=== PATIENT | female | born 1960 | race American Indian/Alaskan Native ===

== ENCOUNTER 2017-01-08 14:36 | Emergency (ER) | payer MEDICARE ==
[2017-01-08 14:50] VITALS: TEMP 98.7
[2017-01-08 15:52] LABS: BASO # 0.1 K/uL (0.0-0.2); BASO % 1.2 % (0.0-2.0); EOS # 0.3 K/uL (0.0-0.7); EOS % 4.7 % (0.0-4.0); HEMOGLOBIN 12.8 g/dL (11.0-16.0); LYMPH # 1.8 K/uL (1.0-4.3); LYMPH % 32.4 % (20.0-40.0); MEAN CELL VOLUME 89.6 fL (81.0-99.0); MEAN CORPUSCULAR HEMOGLOBIN 28.8 pg (27.0-31.0); MEAN CORPUSCULAR HGB CONC 32.1 g/dL (33.0-37.0); MEAN PLATELET VOLUME 8.4 fL (7.2-11.7); MONO # 0.4 K/uL (0.0-0.8); MONO % 7.4 % (0.0-10.0); NEUT % 54.3 % (50.0-75.0); NRBC % 0.1 % (0.0-2.0); RBC 4.44 Mil/uL (3.80-5.20); RED CELL DISTRIBUTION WIDTH 14.8 % (11.5-14.5); WHITE BLOOD COUNT 5.6 K/uL (4.8-10.8)
[2017-01-08 16:09] LABS: ALBUMIN 3.6 g/dL (3.5-5.0)
[2017-01-08 16:12] LABS: ALB/GLOB RATIO 0.9 (1.0-2.1); AST/SGOT 35 U/L (14-36); BLOOD UREA NITROGEN 15 mg/dL (7-17); GFR AFRICAN-AMERICAN > 60; GFR NON-AFRICAN AMERICAN > 60
[2017-01-08 16:13] LABS: ALT/SGPT 30 U/L (9-52); CALCIUM 8.7 mg/dl (8.6-10.4)
[2017-01-08 16:20] LABS: CK-MB 0.81 ng/mL (0.0-3.38)
[2017-01-08 16:23] LABS: B-TYPE NATRIURETIC PEPTIDE 29.7 pg/mL (0-900)
--- NOTE | 2017-01-08 16:30 | C.PDOC ---
History Of Present Illness 56 year old female presents to the ER with complaint of bilateral lower extremity swelling since 2004 that has worsened recently. Patient has not seen a physician in several years due to insurance issues; however, she is planning to in the near future. Patient also report mild SOB; denies chest pain, cough, fever, rash, weakness, sensory changes. Time Seen by Provider: 01/08/17 14:57 Chief Complaint (Nursing): Shortness Of Breath History Per: Patient History/Exam Limitations: no limitations Onset/Duration Of Symptoms: Days Current Symptoms Are (Timing): Still Present Initiating Event: Other (Not known) Current Respiratory Medications: None Associated Symptoms: Other (Mild SOB, no cough). denies: Fever, Chest Pain Recent travel outside of the [place]: No Past Medical History Reviewed: Historical Data, Nursing Documentation, Vital Signs Vital Signs: Last Vital Signs Temp 98.7 F 01/08/17 14:50 Pulse 72 01/08/17 16:44 Resp 18 01/08/17 16:44 BP 131/62 01/08/17 16:44 Pulse Ox 97 01/08/17 16:57 - Medical History PMH: HTN Surgical History: No Surg Hx Family History: States: No Known Family Hx - Social History Hx Alcohol Use: No Hx Substance Use: No - Immunization History Hx Tetanus Toxoid Vaccination: No Hx Influenza Vaccination: No Hx Pneumococcal Vaccination: No Review Of Systems Except As Marked, All Systems Reviewed And Found Negative. Cardiovascular: Negative for: Chest Pain, Palpitations Respiratory: Positive for: Shortness of Breath (Mild). Negative for: Cough Gastrointestinal: Negative for: Nausea, Vomiting, Abdominal Pain, Diarrhea Musculoskeletal: Positive for: Other (Bilateral lower extremity swelling) Physical Exam - Physical Exam Appears: Well, Non-toxic, Other (Obese) Skin: Normal Color, Warm, Dry Head: Normacephalic Oral Mucosa: Moist Chest: Symmetrical, No Tenderness Cardiovascular: Rhythm Regular Respiratory: Normal Breath Sounds, No Accessory Muscle Use, No Rales, No Rhonchi , No Wheezing Gastrointestinal/Abdominal: Normal Exam, Bowel Sounds, Soft, No Tenderness Extremity: Pedal Edema (+2 pitting with chronic skin thickening/changes and erythema.), No Calf Tenderness, No Deformity Pulses: Left Dorsalis Pedis: Normal, Right Dorsalis Pedis: Normal Neurological/Psych: Oriented x3 ED Course And Treatment - Laboratory Results Result Diagrams: 01/08/17 15:41 01/08/17 15:41 O2 Sat by Pulse Oximetry: 97 (Room air) Pulse Ox Interpretation: Normal - Radiology CXR: Interpreted by Me, Viewed By Me (no infiltrates/effusions) Progress Note: Blood work, CXR ordered and reviewed. Patient given Lasix 20mg IVP. Reevaluation Time: 17:25 Reassessment Condition: Improved (On reassessment, patient is resting comfortably, in no pain/distress. Blood worl shows mild CK elevation, otherwise unremarkable. CXR (-) for infiltrates/effusions/congestion. Pox 97- 99% on RA, and patient has no current dyspnea. Patient given Rx for Lasix 20mg PO, and instructed to follow up in medical clinic in 1-2 days. She understands she should return to ED if symptoms worsen.) Disposition Counseled Patient/Family Regarding: Studies Performed, Diagnosis, Need For Followup, Rx Given - Disposition Referrals: [facility] [Outside] Disposition: HOME/ ROUTINE Disposition Time: 17:25 Condition: STABLE Additional Instructions: FOLLOW UP WITH YOUR DOCTOR/CLINIC IN 1-2 DAYS USE MEDICATION DAILY RETURN TO ER IF SYMPTOMS WORSEN Prescriptions: Furosemide [Lasix] 20 mg PO DAILY #30 tab Instructions: Leg Edema (ED) Print Language: GERMAN - POA Present On Arrival: None - Clinical Impression Clinical Impression: Peripheral edema - Scribe Statement The provider has reviewed the documentation as recorded by the Scriblou Magaña All medical record entries made by the Scribe were at my direction and personally dictated by me. I have reviewed the chart and agree that the record accurately reflects my personal performance of the history, physical exam, medical decision making, and the department course for this patient. I have also personally directed, reviewed, and agree with the discharge instructions and disposition.
[2017-01-08 16:44] VITALS: BP 131/62; PULSE 72; RESP 18
[2017-01-08 16:51] VITALS: O2SAT 97
--- NOTE | 2017-01-08 17:18 | RAD ---
PROCEDURE: CHEST RADIOGRAPH, 1 VIEW HISTORY: SOB COMPARISON: None available. FINDINGS: LUNGS: Clear. PLEURA: No pneumothorax or pleural fluid seen. CARDIOVASCULAR: Normal. OSSEOUS STRUCTURES: No significant abnormalities. VISUALIZED UPPER ABDOMEN: Normal. OTHER FINDINGS: None. IMPRESSION: No active disease.
== END 2017-01-08 17:31 | disposition home or self-care (01) ==
LOC: C.ER 14:36
DX: R60.0 Localized edema (principal)